=== PATIENT | female | born 1950 | race Caucasian/White ===

== ENCOUNTER 2025-09-16 08:53 | Outpatient (REF) | payer MEDICARE, SELFPAY ==
[2025-09-16 13:15] LABS: Appearance Urine Clear; Glucose Urine UA Negative (Negative); PH 8.5 (5.0-9.0); Specific Gravity - Urine 1.010 (1.005-1.025); UMIC TRIGGER UACC YES
[2025-09-16 13:19] LABS: MANUAL DIFF FLAG NO
[2025-09-16 13:40] LABS: Hematocrit 40.0 % (37.0-47.0); Hemoglobin 13.0 g/dl (12.0-16.0); Imm Gran Abs Auto 0.01 X10*3/uL (0.00-0.03); Imm Gran Pct Auto 0.2 % (0.0-0.4); Lymphocytes Absolute Auto 0.9 X10*3/uL (1.2-4.9); Mean Corpuscular HGB Conc 32.5 g/dl (31.0-35.0); Mean Corpuscular Hemoglobin 31.1 pg (27.0-33.0); Mean Corpuscular Volume 95.7 fL (80.0-98.0); NRBC Abs Auto 0.000 X10*3/uL (0.0-0.012); NRBC Pct Auto 0.0 /100WBC (0.0-0.2); Platelet Count 232 X10*3/uL (160-400); Red Blood Count 4.18 X10*6/uL (4.20-5.50); White Blood Count 4.8 X10*3/uL (4.8-10.8)
[2025-09-16 14:14] LABS: Alanine Aminotransferase 24 U/L (0-31); Albumin Level 4.7 g/dL (3.5-5.0); Alkaline Phosphatase 81 U/L (39-117); Anion Gap 10 (12-20); Aspartate Amino Transferase 29 U/L (5-31); Blood Urea Nitrogen 21 mg/dL (9-16); Calcium 9.5 mg/dL (8.4-10.2); Carbon Dioxide 30 mmol/L (22-29); Chloride 105 mmol/L (96-108); Cholesterol 186 mg/dL (<200); Estimated Glomerular Filt Rate 58; HDL Cholesterol 56 mg/dL (>40); Magnesium 2.3 mg/dL (1.6-2.6); Potassium 4.0 mmol/L (3.3-5.1); Sodium 141 mmol/L (135-145); Total Protein 8.0 g/dL (6.5-8.0); Triglycerides 137 mg/dL (<150)
[2025-09-16 14:23] LABS: HBS Num1 20.02 mIU/mL (0-7.99); HBsAGNum1 0.37 S/CO (0.00-0.99); HIV Num 1 0.05 S/CO (0.00-0.99); Hepatitis B Surface Antigen Negative (Negative); ~HepC Num1 0.13 S/CO (0.00-0.79); ~Hepatitis B Surface Antibody REACTIVE (Nonreactive); ~Hepatitis C Antibody Nonreactive (Nonreactive)
[2025-09-16 14:24] LABS: Folate 12.3 ng/mL (> or = 4.0); Vitamin B12 697 pg/mL (200-900)
[2025-09-20 12:04] LABS: VITAMIN D (1,25 OH) D3 44 pg/mL; Vit D (1,25-Dihydroxy) Total 44 pg/mL (18-72); Vitamin D (1,25 OH) D2 <8 pg/mL
== END 2025-09-16 08:54 | disposition home or self-care (01) ==
LOC: HO.HKASLDS 08:53
PROVIDERS: Visit Provider Student in an Organized Health Care Education/Training Program
DX: Z13.9 Encounter for screening, unspecified (principal); I10 Essential (primary) hypertension; E78.5 Hyperlipidemia, unspecified; R03.0 Elevated blood-pressure reading, without diagnosis of hypertension; E66.3 Overweight; Z79.899 Other long term (current) drug therapy; Z68.26 Body mass index [BMI] 26.0-26.9, adult
CPT/HCPCS: 36415; 80053; 80061; 81001; 82570; 82607; 82652; 82746; 83036; 83735; 84443; 85025; 86706; 86803; 87340; 87389; 96127; 99202

== ENCOUNTER 2025-09-16 08:53 | Outpatient (AMB) | payer MEDICARE, SELFPAY ==
--- OUTSIDE RECORDS SUMMARY | 2025-04-11 07:50 | XMS_ITS | Encounter Summary ---
Author Organization [facility] Address [address] [place] [address] Care Team Providers Care Wash Driller Name Role Phone Pcp, No Primary Care Provider Brett Proctor MD Unavailable [phone] Encounter Details Date Type Department Care Team (Latest Contact Info) Description 04/11/2025 7:50 AM EDT Hospital Encounter [facility] [address] [place] [phone] Hypertensive urgency Social History Tobacco Use Types Packs/Day Years Used Date Smoking Tobacco: Never Smokeless Tobacco: Never Alcohol Use Standard Drinks/Week Comments Not Currently 0 (1 standard drink = 0.6 oz pur e alcohol) [facility] Utilities Answer Date Recorded In the past 12 months has [employer], gas, oil, or water [email or web address] threatened to shut off services in your [...] were you homeless or living in a snf (including now)? No 02/23/2025 Comments No Sex and Gender Information Value Date Recorded Sex Assigned at Female 02/22/2025 11:05 PM EDT Legal Sex Female 9:23 PM EDT Gender Identity Female 02/22/2025 11:05 PM EDT Sexual Orientation Heterosexual (straight) 02/22 11:05 PM EDT documented as of this encounter Plan of Treatment Upcoming Encounters Date Type Department Care Team (Late st Contact Info) Description 09/20/2025 8:00 AM EDT Office Visit [facility] [place] [address] [place] [phone] Brett Ellington MD [address] [place] [address] documented as of this encounter Procedures Procedure [...] urgency documented in this encounter Care Teams Wash Driller Relationship Specialty Start Date End Date Pcp, No PCP - General General Medicine 02/28/25 Brett Ellington MD [facility] [address] [place] [address] Primary Plastic Welder Cardiovascular Disease 03/09/24 documented as of this encounter
--- NOTE | 2025-09-16 08:54 | A.OFFPC_ITS ---
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 up Commercial Sales Specialist Required: No Accompanied by: Self / Same As Patient Allergies No Known Allergies Allergy (Verified 09/16/25 08:58) Medication List - Last Reconciled 09/16/25 by Adrián Espinal MD carvedilol 12.5 mg PO BID chlorthalidone 25 mg PO DAILY losartan 100 mg PO DAILY nifedipine ER 60 mg PO DAILY rosuvastatin 40 mg PO DAILY Tobacco use date assessed: 09/16/25 Dental Screening Dental Screen Date: 09/16/25 Did you have a dental visit in the last 12 months?: Yes Did you have a dental problem in the last 6 months where you did not have access to dental care?: No Was dental information given to patient?: Patient has dentist HPI HPI Comments History of Present Illness Details History of Present Illness The patient is a 75 year old female presenting to [facility] primary care. Essential Hypertension: The patient has a history of hypertension managed by an dimensional engineer in [facility]. Her medications include carvedilol, chlorthalidone, losartan, and nifedipine. Her daughter reports home blood pressure readings of 135-140 mmHg, but her in-office reading was 188/86 mmHg, which was attributed to nervousness. She saw a clinical director three months ago and had an echocardiogram and an electrocardiogram performed. Hyperlipidemia: The patient takes rosuvastatin, indicating treatment for hyperlipidemia. Health Maintenance: Her last blood work was done two months ago, in January. Her last colonoscopy was three years ago, with no specific follow-up interval mentioned. Mammograms and Pap smears are reportedly up-to-date and normal. All her vaccinations are reportedly up to date. Medications: - Carvedilol for hypertension - Chlorthalidone for hypertension - Losartan for hypertension - Nifedipine for hypertension - Rosuvastatin for hyperlipidemia Social History: - Tobacco use: Denies smoking. - Alcohol use: Denies drinking. - Residence: The patient is temporarily living with her daughter in [place] after previously living with her sister in [place]. Diagnostic Results: - In-office blood pressure: 188/86 mmHg. - Patient reports having had blood work done two months ago. - Patient reports having an echocardiogr am and electrocardiogram three months ago. - Patient reports last colonoscopy was t hree years ago. - Patient reports mammograms and Pap sme ars were good. Past Medical History - Hypertension - Hyperlipidemia - Last colonoscopy 3 years ago. - Reports normal mammograms and Pap smea rs in the past. Health Maintenance - The patient reports that her mammogram s, Pap smears, and vaccinations are up to date. - Her last colonoscopy was three years a go. - New laboratory studies were ordered, i ncluding a complete blood count, comprehensive metabolic panel, HbA1c, hepatitis B and C screening, thyroid panel, urinalysis, B12, folate, and vitamin D levels. [facility] Family History (Updated 09/16/25 @ 08:59 by Domenico Mackey MA) Father No problems noted. Mother No problems noted. Social History Housing: House Patient Tobacco Use Status: Never used Tobacco service: No Current occupational status: retired Cognitive needs: No Hearing needs: No Vision needs: Yes (rx glasses) Questionnaire Thrive Questionnaire Date Thrive assessed: 09/13/25 I am a: Patient What is your living situation today?: I choose not to answer this question Within the past 12 months, did the food you bought not last and you didn't have the money to get more?: I choose not to answer this question Within the past 12 months, did you worry whether your food would run out before you got money to buy more?: I choose not to answer this question Do you have trouble paying for medicines?: I choose not to answer this question Do you have trouble getting transportation to medical appointments?: No Do you have trouble paying your heating and electricity bill?: No Do you have trouble taking care of your child, family member or friend?: No Do you have trouble with day-to-day activities such as bathing, preparing meals, shopping, managing finances, etc.?: No Are you currently unemployed and looking for a job?: No Are you interested in more education?: No Please select the resources that you would like help with: None Currently or been in a relationship where the following occur: I choose not to answer THRIVE Score: 0 AUDIT C Alcohol Use Questionnaire (AUDIT-C) 1. How often do you have a drink containing alcohol?: Never 2. How many drinks containing alcohol do you have on a typical day when you are drinking?: 1 or 2 3. How often do you have six or more drinks on one occasion?: Never Total Score: 0 GUNJAN-7 AMB Questionnaire GUNJAN-7 Feeling nervous, anxious, or on edge: 2 = More than half the days Not being able to stop or control worryin = Not at all Worrying too much about different things: 0 = Not at all Trouble relaxin = Not at all Being so restless that it is hard to sit still: 0 = Not at all Becoming easily annoyed or irritable: 0 = Not at all Feeling afraid as if something awful might happen: 0 = Not at all Total GUNJAN-7 score (0-4 normal; 5-9 mild; 10-14 moderate; 15-21 severe): 2 Source: Developed by Drs. Shai Carcamo, Sarah Zhu, Frank Connolly and colleagues, with an educational gilma from [employer]. Review of Systems Narrative Review of Systems - Cardiovascular: Reports a small amount of pedal edema. - Gastrointestinal: Reports normal bowel function. - Genitourinary: Reports normal urination but has nocturia once per night. - Neurological/Sleep: Reports variable sleep quality and snores a little. - Psychiatric: Daughter reports the patient is nervous during the visit. 10-point ROS reviewed and negative except as noted in HPI Physical exam (Primary Care) Vital Signs: Last Vital Signs Temp 98.2 F 09/16/25 09:02 Pulse 88 09/16/25 09:02 Resp 16 09/16/25 09:02 BP 188/86 H 09/16/25 09:02 Pulse Ox 97 09/16/25 09:02 Oxygen Delivery Method Room Air 09/16/25 09:02 BMI result Body Mass Index 26.5 Tobacco/Smoking Status: Tobacco use Status Tobacco use date assessed 09/16/25 09/16/25 09:02 Patient Tobacco Use Status Never used Tobacco 09/16/25 09:02 Thrive Assessment: Date of Thrive Assessment Date Thrive assessed 09/13/25 09/16/25 08:56 Currently or been in a relationship where the following occur: I choose not to answer Narrative Physical Exam General: Well-appearing, in no acute distress. Vital signs: Blood pressure 188/86, otherwise within normal limits. HEENT: Normocephalic, atraumatic. PERRLA, EOMI. Conjunctiva clear, sclera anicteric. Oropharynx clear, mucous membranes moist. TMs intact bilaterally. Neck: Supple, no lymphadenopathy, no thyromegaly, no JVD or carotid bruits. Cardiovascular: RRR, normal S1/S2, no murmurs, rubs, or gallops. Peripheral pulses 2+ and symmetric. Slight edema noted in feet. Respiratory: Lungs clear to auscultation bilaterally, no wheezes, rales, or rhonchi. Normal effort. Mild snoring reported. Abdomen: Soft, non-tender, non-distended. Normoactive bowel sounds. No hepatosplenomegaly, no masses. MSK: Full range of motion, no joint swelling or deformity. Normal gait. Skin: Warm, dry, intact. No rashes, lesions, or pallor. Neuro: Alert and oriented x3. Cranial nerves II-XII intact. Strength 5/5 throughout. Sensation intact. Reflexes 2+ symmetric. Normal coordination and gait. Psych: Appropriate mood and affect. Normal judgment and insight. Sleep is sometimes good, sometimes not good. Occasional waking at night to urinate. Coding Level of Care Code New Pt Level 4 (15924) Diagnoses Hypertension I10 Hyperlipidemia E78.5 Elevated blood pressure reading R03.0 Overweight (BMI 25.0-29.9) E66.3 Assessment & Plan Assessment & Plan (1) Hypertension: Code(s): I10 - Essential (primary) hypertension (2) Hyperlipidemia: Code(s): E78.5 - Hyperlipidemia, unspecified (3) Elevated blood pressure reading: Code(s): R03.0 - Elevated blood-pressure reading, without diagnosis of hypertension (4) Overweight (BMI 25.0-29.9): Code(s): E66.3 - Overweight Plan Consent Consent was verbally obtained from the patient and her daughter for a new patient evaluation and for ordering comprehensive blood work. Patient was informed and verbally consented to the use of an ambient scribe for clinic note documentation during this visit. Plan 1. Essential Hypertension - Will obtain and review medical records from her previous providers to assess the management of her hypertension. - Office blood pressure is elevated at 188/86 mmHg, which may be related to anxiety. - Ordered a comprehensive metabolic panel to check renal function and electrolytes, which can be affected by blood pressure and its medications. - No changes will be made to her current antihypertensive medications (carvedilol, chlorthalidone, losartan, nifedipine) pending review of records and lab results. 2. Hyperlipidemia - The patient is currently on rosuvastatin. - Will obtain past records and check lipid levels via new lab work to evaluate the effectiveness of current therapy. 3. Establishment Of Primary Care - Will establish care as the patient's new primary care physician. - Ordered baseline new patient labs, including a CBC, CMP, HbA1c, hepatitis panel, TSH, urinalysis, vitamin B12, folate, and vitamin D. - The patient will have blood work done at the clinic today. - A follow-up visit will be arranged to discuss the lab results and review medical records. - The patient's daughter's request for an authorization to see a provider in [place] will be evaluated after a full assessment is complete. Discussion Notes I introduced myself to the patient and her daughter and discussed their primary goal of establishing care and obtaining an authorization for her to see a doctor in [place] due to insurance complexities. I explained that before making any referrals, I need to conduct a thorough evaluation, which includes reviewing her past medical records and obtaining baseline labs. I noted that her blood pressure of 188/86 mmHg in the office is significantly elevated, and while it may be related to anxiety, it suggests her hypertension may not be well-managed. I informed them that I have ordered comprehensive blood work, which she can have done in the office today, to check her overall health, including kidney and liver function, blood counts, thyroid, and vitamin levels. We agreed to schedule a follow-up appointment to review these results and the records from her previous providers, at which point we can formulate a definitive care plan. Patient Instructions - Please have your blood work done here in the office today. - Please contact your previous doctors and ask them to send your medical records to our office. - Schedule a follow-up appointment to review your lab results and medical records. - Continue to take your current medications as they have been prescribed. Medical Decision Making The patient is a 75-year-old female with a history of hypertension and hyperlipidemia who presents to establish primary care. The central issue is the patient's request for an authorization to see an [id number] provider while her blood pressure appears to be poorly controlled, with an in-office reading of 188/86 mmHg despite being on four antihypertensive agents (carvedilol, chlorthalidone, losartan, nifedipine). Although her daughter states home readings are lower, this degree of elevation warrants a full evaluation before considering referral. My primary goal for this visit is to begin a comprehensive workup to establish a baseline of her health status and take over her primary care. To this end, I have ordered extensive new patient labs (CBC, CMP, A1c, TSH, vitamins, etc.) and requested all prior medical records, particularly from the providers managing her chronic conditions. This data is essential to understand the rationale for her current medication regimen, rule out secondary causes of hypertension or end-organ damage, and ensure continuity of care. I have deferred any medication adjustments or decisions on the authorization request until these results and records can be reviewed. Total time spent caring for the patient today was 30 minutes. This includes time spent before the visit reviewing the chart, time spent documenting, and time spent reviewing laboratory results, diagnostic imaging, medications, performing a medically necessary evaluation, counseling on diagnoses, care coordination, Orders: Orders Hepatitis B Surface Antibody Today Z13.9 - Encounter for screening, unspecified Hepatitis C Antibody Today Z13.9 - Encounter for screening, unspecified TSH reflex Free T4 Today Z13.9 - Encounter for screening, unspecified Vitamin D 1,25 dihydroxy Today Z13.9 - Encounter for screening, unspecified Vitamin B12 and Folate Today Z13.9 - Encounter for screening, unspecified Lipid Panel Today Z13.9 - Encounter for screening, unspecified Complete Blood Count Auto Diff Today Z13.9 - Encounter for screening, unspecified Comprehensive Met. Panel Today Z13.9 - Encounter for screening, unspecified Hemoglobin A1c Today Z13.9 - Encounter for screening, unspecified Hepatitis B Surface Antigen Today Z13.9 - Encounter for screening, unspecified UA CC w/rflx Micro + Cult Today Z13.9 - Encounter for screening, unspecified Magnesium Today Z13.9 - Encounter for screening, unspecified Microalbumin, Random (w Creat) Today Z13.9 - Encounter for screening, unspecified HIV Ab/Ag Today Z13.9 - Encounter for screening, unspecified
[2025-09-16 09:02] VITALS: BP 188/86; PULSE 88; RESP 16; TEMP 36.8; O2SAT 97; BMI 26.5
--- OUTSIDE RECORDS SUMMARY | 2025-09-16 09:33 | XMS_ITS ---
Author Name [facility] Organization Unknown Results Test Name/Text Value Interpretation Date Range Source Renin Plas-cCnc 1.35 ng/mL/h 04/10/2025 [facility] Magnesium SerPl-mCnc 2.4 mg/dL Normal 03/06/2025 1.6 - 2. 6 [facility] Albumin SerPl-mCnc 4.8 g/dL Normal 03/06/2025 3.4 - 4.8 [facility]CT Globulin Ser Calc-mCnc 3.2 g/dL Normal 03/06/2025 1.5 - 3.9 H[facility]CT Bilirub SerPl-mCnc 0.8 mg/dL Normal 03/06/2025 0.3 - 1.2 HHCCT ALT SerPl-cCnc 15.0 U/L Normal 03/06/2025 7 - 35 [facility] T Glucose SerPl-mCnc 112.0 mg/dL Above high normal 03/06/2025 74 - 106 HHCCT GFR/BSA.pred SerPlBld [id number] 66.0 Normal 03/06/2025 59 - HHCCT Albumin/Glob SerPl 1.5 Ratio Normal 03/06/2025 1.5 - 2.5 H[facility]CT Sodium SerPl-sCnc 144.0 mmol/L Normal 03/06/2025 136 - 14 5 HHCCT Creat SerPl-mCnc 0.9 mg/dL Normal 03/06/2025 0.6 - 1 HH CCT Anion Gap Bld-sCnc 6.0 Normal 03/06/2025 5 - 15 H[facility]CT Chloride SerPl-sCnc 109.0 mmol/L Above high normal 98 - 107 H[facility]CT BUN SerPl-mCnc 12.0 mg/dL Normal 03/06/2025 9 - [address] Prot SerPl-mCnc 8.0 g/dL Normal 03/06/2025 5.7 - 8.[address] BUN/Creat SerPl 13.0 Ratio Normal 03/06/2025 10 - 25 HH CCT ALP SerPl-cCnc 90.0 U/L Normal 03/06/2025 32 - 122 [facility] T Calcium SerPl-mCnc 9.5 mg/dL Normal 03/06/2025 8.7 - 10.5 HHCCT AST SerPl-cCnc 36.0 U/L Above high normal 03/06/2025 - 34 HHCCT CO2 SerPl-sCnc 30.0 mmol/L Normal 03/06/2025 20 - 31 HH CCT Potassium SerPl-sCnc 5.2 mmol/L Above high normal 03/06/2025 3.4 - 4.5 H[facility]CT BNP SerPl-mCnc 112.0 pg/mL Above high normal 03/06/2025 0 - 99 H[facility]CT Basophils num Bld Auto 0.01 Thou/uL Normal 03/06/2025 0 - 0.2 HHCCT Imm Granulocytes/leuk NFr Bld Auto 0.1 % Normal 03/06/2025 H[facility]CT RDW RBC Auto-Rto 13.0 % Normal 03/06/2025 11.5 - 14.5 HHCCT MCV RBC Auto 93.0 fL Normal 03/06/2025 80 - 100 H[facility]CT Neutrophils/leuk NFr Bld Auto 77.7 % Normal 03/06/2025 H[facility]CT Monocytes num Bld Auto 0.51 Thou/uL Normal 03/06/2025 0.2 - 1.5 HHCCT WBC num Bld Auto 7.5 Thou/uL Normal 03/06/2025 4 - 11 H[facility]CT Eosinophil/leuk NFr Bld Auto 1.1 % Normal 03/06/2025 H[facility]CT Lymphocytes num Bld Auto 1.07 Thou/uL Below low normal 03/06/2025 1.5 - 4.5 H[facility]CT Hgb Bld-mCnc 12.1 g/dL Normal 03/06/2025 11.7 - 15.7 [facility] T MCH RBC Qn Auto 30.4 pg Normal 03/06/2025 27 - [address] RBC num Bld Auto 3.98 Mil/uL Below low normal 03/06/2025 4 - 5.4 HHCCT Hct VFr Bld Auto 37.1 % Normal 03/06/2025 35 - 47 HH CCT Eosinophil num Bld Auto 0.08 Thou/uL Normal 03/06/2025 0 - 0.7 HHCCT Monocytes/leuk NFr Bld Auto 6.8 % Normal 03/06/2025 H[facility]CT Imm Granulocytes num Bld Auto 0.01 Thou/uL Normal 03/06/2025 0 - 0.1 HHCCT Neutrophils num Bld Auto 5.85 Thou/uL Normal 03/06/2025 2 - 7.5 HHCCT PMV Bld Auto 10.4 fL Normal 03/06/2025 7.5 - 12.5 H[facility]CT Lymphocytes/leuk NFr Bld Auto 14.2 % Normal 03/06/2025 H[facility]CT Basophils/leuk NFr Bld Auto 0.1 % Normal 03/06/2025 HHCCT MCHC RBC Auto-mCnc 32.6 g/dL Normal 03/06/2025 30 - 36 H[facility]CT Platelet num Bld Auto 265.0 Thou/uL Normal 03/06/2025 150 - 450 H[facility]CT BUN SerPl-mCnc 16.0 mg/dL Normal 02/24/2025 9 - [address] Glucose SerPl-mCnc 102.0 mg/dL Normal 02/24/2025 74 - 106 H[facility]CT Anion Gap Bld-sCnc 6.0 Normal 02/24/2025 5 - 15 H[facility]CT BUN/Creat SerPl 18.0 Ratio Normal 02/24/2025 10 - 25 HH CCT Chloride SerPl-sCnc 108.0 mmol/L Above high normal 98 - 107 HHCCT CO2 SerPl-sCnc 30.0 mmol/L Normal 02/24/2025 20 - 31 HH CCT Creat SerPl-mCnc 0.9 mg/dL Normal 02/24/2025 0.6 - 1 HH CCT Potassium SerPl-sCnc 4.1 mmol/L Normal 02/24/2025 3.4 - 4 .5 HHCCT GFR/BSA.pred SerPlBld [id number] 66.0 Normal 02/24/2025 59 - HHCCT Calcium SerPl-mCnc 8.6 mg/dL Below low normal 02/24/2025 8.7 - 10.5 HHCCT Sodium SerPl-sCnc 144.0 mmol/L Normal 02/24/2025 136 - 14 5 HHCCT Troponin I SerPl DL<=0.01 ng/mL-mCnc 91.0 ng/L Above high normal 02/24/2025 - [facility] CT Delta 54.0 Normal 02/24/2025 HHCCT MCH RBC Qn Auto 29.8 pg Normal 02/24/2025 27 - [address] Hct VFr Bld Auto 34.3 % Below low normal 02/24/2025 35 - 47 HHCCT RBC num Bld Auto 3.72 Mil/uL Below low normal 02/24/2025 4 - 5.4 HHCCT MCV RBC Auto 92.0 fL Normal 02/24/2025 80 - 100 HHCCT PMV Bld Auto 10.5 fL Normal 02/24/2025 7.5 - 12.5 HHCCT WBC num Bld Auto 5.3 Thou/uL Normal 02/24/2025 4 - 11 HHCCT Hgb Bld-mCnc 11.1 g/dL Below low normal 02/24/2025 11.7 - 15 .7 HHCCT MCHC RBC Auto-mCnc 32.4 g/dL Normal 02/24/2025 30 - 36 HHCCT RDW RBC Auto-Rto 13.2 % Normal 02/24/2025 11.5 - 14.5 HHCCT Platelet num Bld Auto 200.0 Thou/uL Normal 02/24/2025 150 - 450 HHCCT Troponin I SerPl DL<=0.01 ng/mL-mCnc 103.0 ng/L Above high normal 02/24/2025 - [facility] CT Delta 66.0 Normal 02/24/2025 HHCCT Delta 86.0 Normal 02/23/2025 HHCCT Troponin I SerPl DL<=0.01 ng/mL-mCnc 123.0 ng/L Above high normal 02/23/2025 - [facility] CT Delta 67.0 Normal 02/23/2025 HHCCT Troponin I SerPl DL<=0.01 ng/mL-mCnc 104.0 ng/L Above high normal 02/23/2025 - [address] Delta 15.0 Normal 02/23/2025 HHCCT Troponin I SerPl DL<=0.01 ng/mL-mCnc 52.0 ng/L Above high normal 02/23/2025 - [address] Delta 11.0 Normal 02/23/2025 HHCCT Troponin I SerPl DL<=0.01 ng/mL-mCnc 48.0 ng/L Above high normal 02/23/2025 - [address] Glucose SerPl-mCnc 118.0 mg/dL Above high normal 02/23/2025 74 - 106 HHCCT Prot SerPl-mCnc 7.6 g/dL Normal 02/23/2025 5.7 - 8.[address] Calcium SerPl-mCnc 9.5 mg/dL Normal 02/23/2025 8.7 - 10.5 HHCCT ALT SerPl-cCnc 15.0 U/L Normal 02/23/2025 7 - 35 [facility] T Anion Gap Bld-sCnc 9.0 Normal 02/23/2025 5 - 15 HHCCT Globulin Ser Calc-mCnc 3.0 g/dL Normal 02/23/2025 1.5 - 3.9 HHCCT Sodium SerPl-sCnc 145.0 mmol/L Normal 02/23/2025 136 - 14 5 HHCCT GFR/BSA.pred SerPlBld [id number] 76.0 Normal 02/23/2025 59 - HHCCT CO2 SerPl-sCnc 27.0 mmol/L Normal 02/23/2025 20 - 31 HH CCT Albumin SerPl-mCnc 4.6 g/dL Normal 02/23/2025 3.4 - 4.8 HHCCT Albumin/Glob SerPl 1.5 Ratio Normal 02/23/2025 1.5 - 2.5 HHCCT ALP SerPl-cCnc 91.0 U/L Normal 02/23/2025 32 - 122 [facility] T Chloride SerPl-sCnc 109.0 mmol/L Above high normal 98 - 107 HHCCT Bilirub SerPl-mCnc 0.5 mg/dL Normal 02/23/2025 0.3 - 1.2 HHCCT BUN/Creat SerPl 21.0 Ratio Normal 02/23/2025 10 - 25 HH CCT AST SerPl-cCnc 28.0 U/L Normal 02/23/2025 - 34 [facility] T BUN SerPl-mCnc 17.0 mg/dL Normal 02/23/2025 9 - [address] Creat SerPl-mCnc 0.8 mg/dL Normal 02/23/2025 0.6 - 1 HH CCT Potassium SerPl-sCnc 3.8 mmol/L Normal 02/23/2025 3.4 - 4 .5 HHCCT Delta NO PREVIOUS RESULT Normal 02/23/2025 HHCCT Troponin I SerPl DL<=0.01 ng/mL-mCnc 37.0 ng/L Above high normal 02/23/2025 - [address] Neutrophils/leuk NFr Bld Auto 85.5 % Normal 02/23/2025 HHCCT PMV Bld Auto 10.3 fL Normal 02/23/2025 7.5 - 12.5 HHCCT MCV RBC Auto 91.0 fL Normal 02/23/2025 80 - 100 HHCCT Monocytes num Bld Auto 0.48 Thou/uL Normal 02/23/2025 0.2 - 1.5 HHCCT Eosinophil/leuk NFr Bld Auto 0.2 % Normal 02/23/2025 HHCCT MCH RBC Qn Auto 30.4 pg Normal 02/23/2025 27 - [address] Lymphocytes num Bld Auto 0.99 Thou/uL Below low normal 02/23/2025 1.5 - 4.5 HHCCT Hgb Bld-mCnc 12.7 g/dL Normal 02/23/2025 11.7 - 15.7 [facility] T Basophils/leuk NFr Bld Auto 0.1 % Normal 02/23/2025 HHCCT Platelet num Bld Auto 245.0 Thou/uL Normal 02/23/2025 150 - 450 HHCCT Imm Granulocytes num Bld Auto 0.05 Thou/uL Normal 02/23/2025 0 - 0.1 HHCCT Monocytes/leuk NFr Bld Auto 4.5 % Normal 02/23/2025 HHCCT RDW RBC Auto-Rto 12.6 % Normal 02/23/2025 11.5 - 14.5 HHCCT Basophils num Bld Auto 0.01 Thou/uL Normal 02/23/2025 0 - 0.2 HHCCT Eosinophil num Bld Auto 0.02 Thou/uL Normal 02/23/2025 0 - 0.7 HHCCT Hct VFr Bld Auto 37.9 % Normal 02/23/2025 35 - 47 HH CCT WBC num Bld Auto 10.8 Thou/uL Normal 02/23/2025 4 - 11 HHCCT Lymphocytes/leuk NFr Bld Auto 9.2 % Normal 02/23/2025 HHCCT Imm Granulocytes/leuk NFr Bld Auto 0.5 % Normal 02/23/2025 HHCCT MCHC RBC Auto-mCnc 33.5 g/dL Normal 02/23/2025 30 - 36 HHCCT RBC num Bld Auto 4.18 Mil/uL Normal 02/23/2025 4 - 5.4 HHCCT Neutrophils num Bld Auto 9.23 Thou/uL Above high normal 02/23/2025 2 - 7.5 HHCCT History of Medication Use Medication Directions Dispensed Refills Start Date End Date Stat NIFEdipine (PROCARDIA XL) 60 MG 24 hr tablet Take 1 tablet (60 mg total) by mouth daily. 06/20/2025 active carvedilol (COREG) 12.5 MG tablet Take 1 tablet (12.5 mg total) by mouth 2 (two) times a day with meals. 03/20/2025 active chlorthalidone (HYGROTON) 25 MG tablet Take 1 tablet (25 mg total) by mouth daily. 03/20/2025 active losartan (COZAAR) 100 MG tablet Take 1 tablet (100 mg total) by mouth daily. 03/07/2025 03/20/2025 active aspirin enteric coated (ECOTRIN LOW STRENGTH) 81 MG EC tablet Take 1 tablet (81 mg total) by mouth daily. 02/25/2025 active losartan (COZAAR) 50 MG tablet Take 1 tablet (50 mg total) by mouth daily. Do not start before February 25, 2025. 02/25/2025 active carvedilol (COREG) 6.25 MG tablet Take 1 tablet (6.25 mg total) by mouth 2 (two) times a day with meals. 02/24/2025 active rosuvastatin (CRESTOR) 40 MG tablet Take 1 tablet (40 mg total) by mouth daily. 02/24/2025 active Problems Problem Status Onset Date Problem Type Date of Resoluti on Source Hypertensive urgency active 2025-02-23 ProblemAct H[facility] Encounters Encounter Type Encounter Reason Primary Diagnosis Location Date Ambulatory Hypertensive urgency Hypertensive urgency [facility] 06/20/2025 Ambulatory Hypertensive urgency Hypertensive urgency [facility] 05/02/2025 Ambulatory Hypertensive urgency Hypertensive urgency [facility] 04/11/2025 Ambulatory Hypertensive urgency Hypertensive urgency [facility] 03/20/2025 Emergency Essential (primary) hypertension Essential (primary) hypertension [facility] 03/06/2025 Ambulatory Hypertensive urgency Hypertensive urgency [facility] 03/06/2025 Ambulatory Encounter for removal of sutures Encounter for removal of sutures [facility] 03/02/2025 Inpatient Unspecified fall, initial encounter Unspecified fall, initial encounter [facility] 02/22/2025 Care Team Organization Name Specialty Phone Email Start Date End Da te [facility] 09/12/2025 [facility] PCP Logistics Associate 06/21/2025 07/19/2025 [facility] 06/20/2025 025 [facility] NO PCP Primary Care 02/28/2025 [facility] 02/25/2025 07/19/2025 [facility] 02/23/2025
--- OUTSIDE RECORDS SUMMARY | 2025-09-16 09:33 | XMS_ITS | Clinical Summary ---
Author Organization [facility] Address [address] [place] [address] Care Team Providers Care Cash Register Servicer Name Role Phone Pcp, No Primary Care Provider Brett Proctor MD Unavailable [phone] Allergies No known active allergies Medications aspirin enteric coated (ECOTRIN LOW STRENGTH) 81 MG EC tabletIndication s:Hypertensive urgency,Elevated troponin Take 1 tablet (81 mg total) by mouth daily. 30 tablet 2 02/25/2025 Active rosuvastatin (CRESTOR) 40 MG tabletIndication s:Hypertensive urgency Take 1 tablet (40 mg total) by mouth daily. 90 tablet 02/24/2025 Active losartan (COZAAR) 100 MG tabletIndication s:Hypertensive urgency Take 1 tablet (100 mg total) by mouth daily. 90 tablet 3 03/20/2025 Active NIFEdipine (PROCARDIA XL) 60 MG 24 hr tabletIndication s:Hypertensive urgency Take 1 tablet (60 mg total) by mouth daily. 90 tablet 3 06/20/2025 Active chlorthalidone (HYGROTON) 25 MG tabletIndication s:Hypertensive urgency Take 1 tablet (25 mg total) by mouth daily. 90 tablet 3 06/20/2025 Active carvedilol (COREG) 12.5 MG tabletIndication s:Hypertensive urgency Take 1 tablet (12.5 mg total) by mouth 2 (two) times a day with meals. 60 tablet 5 07/15/2025 Active Active Problems Problem Noted Date Diagnosed Date Hypertensive urgency 02/23/2025 Encounters Date Type Department Care Team Description 08/12/2025 Telephone [facility] [address] [place] [address] Leidy Briscoe APRN 07/15/2025 Refill [facility] [address] [place] [address] Brett Ellington MD Medication Refill 06/20/2025 8:20 AM EDT Office Visit [facility] [address] [place] [address] Brett Ellington MD Resistant hypertension (Primary Dx); Hypertensive urgency ; Dyslipidemia Discharge Disposition: Home or Self Care 06/20/2025 Travel from Last 3 Months Social History Tobacco Use Types Packs/Day Years Used Date Smoking Tobacco: Never Smokeless Tobacco: Never Tobacco Cessation:Counseling Given: No Alcohol Use Standard Drinks/Week Comments Not Currently 0 (1 standard drink = 0.6 oz pur e alcohol) [facility] Utilities Answer Date Recorded In the past 12 months has [employer], oil, or water [employer] threatened to shut off services in your [...] any time in the past 12 m [facility], were you homeless or living in a halfway (including now)? No 02/23/2025 Comments No Sex and Gender Information Value Date Recorded Sex Assigned at Female 02/22/2025 11:05 PM EDT Legal Sex Female 9:23 PM EDT Gender Identity Female 02/22/2025 11:05 PM EDT Sexual Orientation Heterosexual (straight) 02/22 11:05 PM EDT Last Filed Vital Signs Vital Sign Reading Time Taken Comments Blood Pressure 212/110 06/20/2025 8:23 AM EDT Pulse 76 06/20/2025 8:23 AM EDT Temperature 36.4 C (97.6 F) 03/06/2025 3:49 PM EDT Respiratory Rate 18 03/06/2025 6:35 PM EDT Oxygen Saturation 98% 06/20/2025 8:23 AM EDT Inhaled Oxygen Concentration - - Weight 61.2 kg (135 lb) 06/20/2025 8:23 AM EDT Height 152.4 cm (5') 06/20/2025 8:23 AM EDT Body Mass Index 26.37 06/20/2025 8:23 AM EDT Plan of Treatment Upcoming Encounters Date Type Department Care Team (Late st Contact Info) Description 09/20/2025 8:00 AM EDT Office Visit [facility] [place] [address] [place] [address] Brett Ellington MD [address] [place], [place] [id number] Health Maintenance Due Date Last Done Comments Advance Care Planning 1950 Hepatitis C Virus Screening 1950 DTaP/Tdap/Td Vaccines (1 - Tdap) 02/13/1967 Pneumococcal Vaccines 50+ (1 of 1 - PCV) 02/13/1998 Zoster (Shingles) Vaccine (1 of 2) 02/13/1998 DXA Bone Density (Females,Ag es 65 and older) 02/13/2013 RSV Vaccine 50 years and old er and Patients (1 - 1-dose 75+ series) 02/13/2023 Influenza Vaccine 06/21/2025 COVID-19 Vaccine ( - 2023-2 5 season) 2025 Hepatitis B Vaccines Aged Out No long er eligible based on patient's age to complete this topic Procedures Procedure Name Priority Date/Time Associated Diagnosis Comments ECG 12-LEAD Routine 06/20/2025 8:27 AM EDT Hypertensive urgency from Last 3 Months Results * ECG 12 lead (06/20/2025 8:27 AM EDT) Pathologist [facility] Ventricular rate 76 BPM EKG [facility] Atrial rate 76 BPM EKG [facility] P-R interval 162 ms EKG [facility] QRS duration 74 ms EKG [facility] Q-T interval 360 ms EKG [facility] QTC calculation (Bazett) 405 ms EKG [facility] P axis 50 degrees EKG [facility] R axis 13 degrees EKG [facility] T axis 27 degrees EKG [facility] 06/20/2025 8:27 AM EDT Narrative EKG [facility] - 06/21/2025 4:52 PM EDT Normal sinus rhythm Normal ECG When compared with ECG of 20-Mar-2025 16:14, No significant change was found Confirmed by MD Ellington Matthew ([id number]) on 06/21/2025 4:52:17 PM Procedure Note Brett Ellington MD - 06/21/2025 Normal sinus rhythm Normal ECG When compared with ECG of 20-Mar-2025 16:14, No significant change was found Confirmed by MD Ellington Matthew ([id number]) on 06/21/2025 4:52:17 PM us Brett Ellington MD ECG ORDERABLES Final Result EKG [facility] from Last 3 Months Insurance [facility] MEDICARE [facility] MEDICARE Advance Directives * Full Code (Latest Code Status on File) Date Activated Date Inactivated Comments 02/23/2025 2:48 AM 03/06/2025 3:43 PM Care Teams Cash Register Servicer Relationship Specialty Start Date End Date Pcp, No PCP - General General Medicine 02/28/25 Brett Ellington MD [facility] [address] [place], [place] [phone] Primary Freight Dispatcher Cardiovascular Disease 03/09/24
--- OUTSIDE RECORDS SUMMARY | 2025-09-16 09:33 | XMS_ITS | Encounter Summary ---
Author Organization [facility] Address [address] [place] [address] Care Team Providers Care River Pilot Name Role Phone Pcp, No Primary Care Provider Brett Proctor MD Unavailable [phone] Encounter Details Date Type Department Care Team (Late st Contact Info) Description 05/08/2025 Scanned Document formerly [facility] [place] [address] [place] [address] Provider, Generic Social History Tobacco Use Types Packs/Day Years Used Date Smoking Tobacco: Never Smokeless Tobacco: Never Alcohol Use Standard Drinks/Week Comments Not Currently 0 (1 standard drink = 0.6 oz pur e alcohol) [facility] Utilities Answer Date Recorded In the past 12 months has [employer] electric, gas, oil, or water company threatened to shut off services in your [...] Description 09/20/2025 8:00 AM EDT Office Visit formerly [facility] [address] [place] [phone] Brett Ellington MD [address] [facility] [place] [place] [phone] documented as of this encounter Visit Diagnoses Not on filedocumented in this encounter Care Teams [employer] Relationship Specialty Start Date End Date Pcp, No PCP - General General Medicine 02/28/25 Brett Ellington MD [address] [facility] [place] [place] [phone] Primary Director Of Student Financial Services Cardiovascular Disease 03/09/24 documented as of this encounter
== END 2025-09-16 09:26 | disposition home or self-care (01) ==
LOC: HO.HMCFMS 08:55
PROVIDERS: PCP Student in an Organized Health Care Education/Training Program; Visit Provider Student in an Organized Health Care Education/Training Program
DX: I10 Essential (primary) hypertension (principal); E78.5 Hyperlipidemia, unspecified; R03.0 Elevated blood-pressure reading, without diagnosis of hypertension; E66.3 Overweight

== ENCOUNTER 2025-10-02 08:52 | Outpatient (AMB) | payer MEDICARE, SELFPAY ==
--- OUTSIDE RECORDS SUMMARY | 2025-04-11 06:50 | XMS_ITS | Encounter Summary ---
Author Organization [facility] Address [address] [place] [address] Care Team Providers Care Video Games Mechanic Name Role Phone Pcp, No Primary Care Provider Brett Proctor MD Unavailable [phone] Encounter Details Date Type Department Care Team (Latest Contact Info) Description 04/11/2025 7:50 AM EDT Hospital Encounter [facility] [address] [place] [id number] Hypertensive urgency Social History Tobacco Use Types Packs/Day Years Used Date Smoking Tobacco: Never Smokeless Tobacco: Never Alcohol Use Standard Drinks/Week Comments Not Currently 0 (1 standard drink = 0.6 oz pur e alcohol) [facility] Utilities Answer Date Recorded In the past 12 months has [employer], gas, oil, or water [employer] threatened to shut off services in your home? No 02/23/2025 AUDIT-C Answer Date Recorded Q1: How often do you have a drink containing alcohol? Never 02/23/2025 Q2: How many drinks containi ng alcohol do you have on a typical day when you are drinking? Patient does not drink Q3: How often do you have si x or more drinks on one occasion? Never 02/23/2025 Overall Financial Resource Strain (CARDIA) Answe r Date Recorded How hard is it for you to pa y for the very basics like food, housing, medical care, and heating? Not hard at all 02/23/2025 Hunger Vital Sign Answer Date Recorded Within the past 12 months, y ou worried that your food would run out before you got the money to buy more. Never true 02/24/20 25 Within the past 12 months, t he food you bought just didn't last and you didn't have money to get more. Never true 02/23/2025 PRAPARE - Transportation Answer Date Re corded In the past 12 months, has l ack of transportation kept you from medical appointments or from getting medications? No 03/2025 In the past 12 months, has l ack of transportation kept you from meetings, work, or from getting things needed for daily living? No 02/23/2025 Housing Stability Vital Sign Answer Zurdo e Recorded In the last 12 months, was t here a time when you were not able to pay the mortgage or rent on time? No 02/23/2025 In the past 12 months, how m any times have you moved where you were living? 0 02/23/2025 At any time in the past 12 m ont, were you homeless or living in a fpc (including now)? No 02/23/2025 Comments No Sex and Gender Information Value Date Recorded Sex Assigned at Female 02/22/2025 11:05 PM EDT Legal Sex Female 9:23 PM EDT Gender Identity Female 02/22/2025 11:05 PM EDT Sexual Orientation Heterosexual (straight) 02/22 11:05 PM EDT documented as of this encounter Plan of Treatment Not on file documented as of this encounter Procedures Procedure Name Priority Date/Time Associated Diagnosis Comments US RENAL COMPLETE & US RENAL ARTERY DUPLEX BILATERAL Routine 04/11/2025 9:13 AM EDT Hypertensive urgency documented in this encounter Results * US Renal Complete & US Renal Artery Duplex Bilateral (04/11/2025 9:13 AM EDT) Anatomical Region Laterality Modality Abdomen Ultrasound 04/11/2025 10:1 5 AM EDT Narrative 04/11/2025 10:25 AM EDT HISTORY: 75 year-old female with hypertension. Evaluate for renovascular cause of hypertension. PROCEDURE: Real-time sonography of the kidneys, aorta, and interlobar and main renal arteries and main renal veins was performed using grayscale, color flow and Doppler interrogation according to a renal artery Doppler protocol. COMPARISON: None. Right kidney measures 11.8 cm in length. Left kidney measures 10.2 cm. There is normal cortical thickness and echogenicity. No evidence of focal mass noted. There is no evidence of hydronephrosis. Anechoic cyst in the right midpole measuring 3 x 2.7 x 2.3 cm. Echogenic foci in the upper and lower pole the left kidney measuring 4-5 mm which may represent nonobstructing calculi. Doppler evaluation demonstrates normal bilateral acceleration times and resistive indices. Renal artery velocities are within normal limits bilaterally. The urinary bladder was well distended at the time of the study and bilateral ureteral jets were visualized. Pre-void volume measured 137 cc. Minimal postvoid residual measured 8 cc. The abdominal aorta was normal in caliber with no evidence of aneurysm. Scattered atherosclerosis throughout the aorta. The visualized common iliac arteries were normal in caliber. CONCLUSION: Renal ultrasound demonstrates normal kidneys bilaterally . Right renal cyst. Echogenic foci in the left kidney measuring up to 5 mm which may represent renal calculi. No hydronephrosis. Doppler evaluation demonstrates no evidence of significant renal artery stenosis. Procedure Note Denver Pinzon MD - 04/11/2025 HISTORY: 75 year-old female with hypertension. Evaluate for renovascularcause of hypertension. PROCEDURE: Real-time sonography of the kidneys, aorta, and interlobar and main renalarteries and main renal veins was performed using grayscale, color flowand Doppler interrogation according to a renal artery Doppler protocol. COMPARISON: None. Right kidney measures 11.8 cm in length. Left kidney measures 10.2 cm.There is normal cortical thickness and echogenicity. No evidence of focalmass noted. There is no evidence of hydronephrosis. Anechoic cyst in theright midpole measuring 3 x 2.7 x 2.3 cm. Echogenic foci in the upper and lower pole the left kidneymeasuring 4-5 mm which may represent nonobstructing calculi. Doppler evaluation demonstrates normal bilateral acceleration times andresistive indices. Renal artery velocities are within normal limitsbilaterally. The urinary bladder was well distended at the time of the study andbilateral ureteral jets were visualized. Pre-void volume measured 137 cc.Minimal postvoid residual measured 8 cc. The abdominal aorta was normal in caliber with no evidence of aneurysm.Scattered atherosclerosis throughout the aorta. The visualized commoniliac arteries were normal in caliber. CONCLUSION: Renal ultrasound demonstrates normal kidneys bilaterally . Right renalcyst. Echogenic foci in the left kidney measuring up to 5 mm which may representrenal calculi. No hydronephrosis. Doppler evaluation demonstrates no evidence of significant renal arterystenosis. us Brett Ellington MD IMG US ORDERABLES Final Resu lt documented in this encounter Visit Diagnoses Diagnosis Hypertensive urgency documented in this encounter Care Teams Video Games Mechanic Relationship Specialty Start Date End Date Pcp, No PCP - General General Medicine 02/28/25 Brett Ellington MD [facility] [address] [place] [address] Primary Miniature Set Builder Cardiovascular Disease 03/09/24 documented as of this encounter
--- NOTE | 2025-10-02 08:55 | A.OFFPC_ITS ---
Vital Signs 10/02/25 08:58 Weight 140 lb 6 oz BP 176/83 H Blood Pressure Location Rt brachial Position Sitting Pulse 90 Pulse Source Pulse Oximeter Temp 97.8 F Temp Source Oral Pulse Oximetry (%) 98 Oxygen Delivery Method Room Air Intake Visit Reasons: 2 wk lab review Manager Battery Required: No Accompanied by: Daughter Allergies No Known Allergies Allergy (Verified 10/02/25 08:56) Medication List - Last Reconciled 10/02/25 by Adrián Espinal MD carvedilol 12.5 mg PO BID chlorthalidone 25 mg PO DAILY losartan 100 mg PO DAILY nifedipine ER 60 mg PO DAILY rosuvastatin 40 mg PO DAILY Tobacco use date assessed: 10/02/25 Fall risk assessment: 1 Fall in past year Last assessed Fall Risk: 10/02/25 Dental Screening Dental Screen Date: 10/02/25 Did you have a dental visit in the last 12 months?: Yes Did you have a dental problem in the last 6 months where you did not have access to dental care?: No Was dental information given to patient?: Patient has dentist HPI HPI Comments History of Present Illness Details Consent Patient was informed and verbally consented to the use of an ambient scribe for clinic note documentation during this visit. History of Present Illness The patient is a 75-year-old female presenting for a review of lab results. White Coat Hypertension: The patient has a history of white coat hypertension, with blood pressure readings that are elevated in the office but normal at home. Today's office reading was 176/83 mmHg, while home readings are typically around 135-140/80 mmHg. The patient acknowledges feeling nervous when visiting the doctor's office. Hyperlipidemia: The patient is on a high-intensity statin, 40 mg, for management of hyperlipidemia. A recent non-fasting lipid panel showed an LDL of 103 mg/dL, which is slightly above the goal of 100 mg/dL, but not concerning given the non- fasting state. She reports that she walks every day. Medications: - Statin 40 mg for hyperlipidemia - nifedipine ER 60mg - Chlorthalidone 25mg - Carvedilol 12.5mg - losartan 100mg Social History: - Exercise: The patient walks every day. - Living Situation: The patient has been considering her state of residence between [place] and [place]. Family History: - Reports her had diabetes. Diagnostic Results: - CBC: White blood cells, red blood cell s, hemoglobin, hematocrit, and platelets are normal. - Comprehensive Metabolic Panel: Sodium, potassium, chloride, renal function in CKD stage 3a range. - Hemoglobin A1c: Normal, patient is not prediabetic or diabetic. - Lipid Panel (non-fasting): Total lora sterol and triglycerides are good; LDL is 103 mg/dL and HDL is 56 mg/dL. - Other labs: Calcium, magnesium, vitami n B12, vitamin D, folate, and thyroid function are normal. - Urinalysis: Normal. - Infectious Disease Screen: Negative fo r Hepatitis B, Hepatitis C, and HIV. Review of Systems - Psychiatric: Reports feeling nervous i n the doctor's office. 10-point ROS reviewed and negative excep t as noted in HPI Past Medical History - White coat hypertension - Hyperlipidemia Health Maintenance - The patient is compliant with a high-i ntensity statin for hyperlipidemia. - The patient is compliant with antihype rtensive medication. - Lifestyle: Reports walking every day. - A referral will be provided for a card iology consultation for co-management of her cardiovascular health. - The patient is scheduled for a follow- up in three months. Physical Exam General: Well-appearing, in no acute distress. Vital signs: Blood pressure is 176/83. HEENT: Normocephalic, atraumatic. PERRLA, EOMI. Conjunctiva clear, sclera anicteric. Oropharynx clear, mucous membranes moist. TMs intact bilaterally. Neck: Supple, no lymphadenopathy, no thyromegaly, no JVD or carotid bruits. Cardiovascular: RRR, normal S1/S2, no murmurs, rubs, or gallops. Peripheral pulses 2+ and symmetric. No edema. Respiratory: Lungs clear to auscultation bilaterally, no wheezes, rales, or rhonchi. Normal effort. Abdomen: Soft, non-tender, non-distended. Normoactive bowel sounds. No hepat osplenomegaly, no masses. MSK: Full range of motion, no joint swelling or deformity. Normal gait. Skin: Warm, dry, intact. No rashes, lesions, or pallor. Neuro: Alert and oriented x3. Cranial nerves II-XII intact. Strength 5/5 throughout. Sensation intact. Reflexes 2+ symmetric. Normal coordination and gait. Psych: Appropriate mood and affect. Normal judgment and insight. Plan 1. White Coat Hypertension - Continue home blood pressure monitorin g, as readings are well-controlled at home. - No changes will be made to the patient 's antihypertensive medication at this time. - A referral will be provided to cardiol ogist Dr. Brett Ellington in [place], [place], for co-management. - Current antihypertensive medications w ill be refilled. - Follow up in three months for reassess ment. 2. Hyperlipidemia - Continue current high-intensity statin (40 mg). - The recent non-fasting LDL of 103 mg/d L is considered acceptable and does not warrant a change in management. - The patient is encouraged to continue her daily walking routine. - Lab results will be sent to her [facility] rdiologist to ensure care coordination and avoid repeat testing. 3. chronic kidney disease stage 3a continue to monitor continue tight BP control avoid nephrotoxic medications Discussion Notes I reviewed the patient's recent lab results with her and her furniture inspector, which were all reassuringly normal. I explained that her A1c confirms she is not diabetic and that her non-fasting LDL of 103 mg/dL is not a concern, given her current statin therapy. We discussed her blood pressure, acknowledging the elevated in-office reading is consistent with white coat hypertension as her home readings are normal; therefore, I will not increase her medication. I agreed to her request for a referral to a aboriginal ceremonial celebrant in [place], Dr. Brett Ellington, for co-management and will have my staff send her records. We established a plan for care coordination, where my office and the aboriginal ceremonial celebrant will exchange clinical information to avoid duplicate testing. I have refilled her medications and advised her to follow up with me in three months. Patient Instructions - Your lab results are normal and do not show any signs of diabetes. - Continue to check your blood pressure at home. - Continue taking your current blood pre ssure and cholesterol medications as prescribed; refills have been sent to your pharmacy. - Keep up with your daily walks. - Our office will give you a referral to see the clinical safety specialist (aboriginal ceremonial celebrant) Dr. Brett Ellington in [place]. - Please have the aboriginal ceremonial celebrant's office send us their notes and a summary of your visit with them. - Please schedule a follow-up appointmen t to see me again in three months. Medical Decision Making The patient is a 75-year-old female who presented for a review of lab results. Her clinical picture is notable for white coat hypertension, with a significant discrepancy between in-office BP (176/83 mmHg) and home readings (135-140/80 mmHg). Given her controlled home blood pressures, an escalation of antihypertensive therapy is not clinically indicated at this time. Her recent non-fasting lipid panel showed an LDL of 103 mg/dL, which is acceptable in the context of her high-intensity statin therapy and the non-fasting status of the sample. The remainder of the lab work, including CBC, CMP, and HbA1c, was unremarkable, ruling out anemia, electrolyte abnormalities, and diabetes. Mild to moderate?loss of kidney function noted The patient's request for a referral to a aboriginal ceremonial celebrant in [place] for co-management is reasonable, and a referral to Dr. Brett Ellington will be issued. To ensure continuity of care, her current medications will be refilled, and a plan for inter-provider communication has been established. The plan is to continue current management, facilitate the cardiology consultation, and re-evaluate her status in three months. Total time spent caring for the patient today was 20 minutes. This includes time spent before the visit reviewing the chart, time spent documenting, and time spent reviewing laboratory results, diagnostic imaging, medications, performing a medically necessary evaluation, counseling on diagnoses, care coordination. [facility] Medical History (Updated 10/02/25 @ 18:44 by Adrián Espinal MD) Elevated blood pressure reading in office with white coat syndrome, with diagnosis of hypertension Elevated LDL cholesterol level Chronic kidney disease, stage 3a Hyperlipidemia Hypertension Family History Father No problems noted. Mother No problems noted. Social History Housing: House Patient Tobacco Use Status: Never used Tobacco service: No Current occupational status: retired Cognitive needs: No Hearing needs: No Vision needs: Yes (rx glasses) Questionnaire Thrive Questionnaire Date Thrive assessed: 10/02/25 I am a: Patient What is your living situation today?: I choose not to answer this question Within the past 12 months, did the food you bought not last and you didn't have the money to get more?: I choose not to answer this question Within the past 12 months, did you worry whether your food would run out before you got money to buy more?: I choose not to answer this question Do you have trouble paying for medicines?: I choose not to answer this question Do you have trouble getting transportation to medical appointments?: No Do you have trouble paying your heating and electricity bill?: No Do you have trouble taking care of your child, family member or friend?: No Do you have trouble with day-to-day activities such as bathing, preparing meals, shopping, managing finances, etc.?: No Are you currently unemployed and looking for a job?: No Are you interested in more education?: No Please select the resources that you would like help with: None Currently or been in a relationship where the following occur: I choose not to answer THRIVE Score: 0 AUDIT C Alcohol Use Questionnaire (AUDIT-C) 1. How often do you have a drink containing alcohol?: Never 2. How many drinks containing alcohol do you have on a typical day when you are drinking?: 1 or 2 3. How often do you have six or more drinks on one occasion?: Never Total Score: 0 GUNJAN-7 AMB Questionnaire GUNJAN-7 Date GUNJAN - 7 assessed: 10/02/25 Feeling nervous, anxious, or on edge: 2 = More than half the days Not being able to stop or control worryin = Not at all Worrying too much about different things: 0 = Not at all Trouble relaxin = Not at all Being so restless that it is hard to sit still: 0 = Not at all Becoming easily annoyed or irritable: 0 = Not at all Feeling afraid as if something awful might happen: 0 = Not at all Total GUNJAN-7 score (0-4 normal; 5-9 mild; 10-14 moderate; 15-21 severe): 2 Source: Developed by Drs. Shai Carcamo, Sarah Zhu, Farnk Connolly and colleagues, with an educational gilma from [employer]. Physical exam (Primary Care) Vital Signs: Last Vital Signs Temp 97.8 F 10/02/25 08:58 Pulse 90 10/02/25 08:58 BP 176/83 H 10/02/25 08:58 Pulse Ox 98 10/02/25 08:58 Oxygen Delivery Method Room Air 10/02/25 08:58 Tobacco/Smoking Status: Tobacco use Status Tobacco use date assessed 10/02/25 10/02/25 08:57 Patient Tobacco Use Status Never used Tobacco 10/02/25 08:57 Thrive Assessment: Date of Thrive Assessment Date Thrive assessed 10/02/25 10/02/25 08:57 Currently or been in a relationship where the following occur: I choose not to answer Office Procedures Flu Questionnaire Does the patient have a severe egg allergy?: No Does the patient have severe life threatening allergies?: No Does the patient have a fever or illness today?: No Has the patient ever had Guillain-Ashaway Syndrome?: No Has the patient ever had any past reaction to a flu shot?: No Immunizations Fluarix [id number] (PF) 45 mcg (15 mcg x 3)/0.5 mL IM syringe Performing Provider: Adrián Espinal MD [place] [facility] [place] [facility] Documented (not given) by: Taniya Flores CMA on 10/02/25 09:05 Reason Not Given: Patient Refused Coding Level of Care Code Est Pt Level 3 (70489) Diagnoses Hypertension I10 Hyperlipidemia E78.5 Chronic kidney disease, stage 3a N18.31 Elevated LDL cholesterol level E78.00 Elevated blood pressure reading in office with white coat syndrome, with diagnosis of hypertension I10 Assessment & Plan Assessment & Plan (1) Hypertension: Code(s): I10 - Essential (primary) hypertension Category: Medical (2) Hyperlipidemia: Code(s): E78.5 - Hyperlipidemia, unspecified Category: Medical (3) Chronic kidney disease, stage 3a: Code(s): N18.31 - Chronic kidney disease, stage 3a Category: Medical (4) Elevated LDL cholesterol level: Code(s): E78.00 - Pure hypercholesterolemia, unspecified Category: Medical (5) Elevated blood pressure reading in office with white coat syndrome, with diagnosis of hypertension: Code(s): I10 - Essential (primary) hypertension Category: Medical Plan Orders: Orders Influenza [id number] Immunization Today Z23 - Encounter for immunization Referrals Cardiology Referral I10 - Essential (primary) hypertension
[2025-10-02 08:58] VITALS: BP 176/83; PULSE 90; TEMP 36.6; O2SAT 98
--- OUTSIDE RECORDS SUMMARY | 2025-10-02 09:22 | XMS_ITS | Encounter Summary ---
Author Organization [facility] Address [address] [place] [address] Care Team Providers Care Stevedoring Superintendent Name Role Phone Pcp, No Primary Care Provider Brett Proctor MD Unavailable [phone] Encounter Details Date Type Department Care Team (Late st Contact Info) Description 05/08/2025 Scanned Document [facility] [place] [address] [place] [address] Provider, Generic Social History Tobacco Use Types Packs/Day Years Used Date Smoking Tobacco: Never Smokeless Tobacco: Never Alcohol Use Standard Drinks/Week Comments Not Currently 0 (1 standard drink = 0.6 oz pur e alcohol) [facility] Utilities Answer Date Recorded In the past 12 months has [employer] electric, gas, oil, or water company threatened [...] were you homeless or living in a care home (including now)? No 02/23/2025 Comments No Sex and Gender Information Value Date Recorded Sex Assigned at Female 02/22/2025 11:05 PM EDT Legal Sex Female 9:23 PM EDT Gender Identity Female 02/22/2025 11:05 PM EDT Sexual Orientation Heterosexual (straight) 02/22 11:05 PM EDT documented as of this encounter Plan of Treatment Not on file documented as of this encounter Visit Diagnoses Not on filedocumented in this encounter Care Teams Stevedoring Superintendent Relationship Specialty Start Date End Date Pcp, No PCP - General General Medicine 02/28/25 Brett Ellington MD [address] [place] [address] [address] Primary Bending Machine Operator Cardiovascular Disease 03/09/24 documented as of this encounter
--- OUTSIDE RECORDS SUMMARY | 2025-10-02 09:23 | XMS_ITS | Clinical Summary ---
Author Organization [facility] Address [address] [place] [address] Care Team Providers Care Principal Accounts Clerk Name Role Phone Pcp, No Primary Care Provider Brett Proctor MD Unavailable [phone] Allergies No known active allergies Medications aspirin [...] Noted Date Diagnosed Date Hypertensive urgency 02/23/2025 Social History Tobacco Use Types Packs/Day Years Used Date Smoking Tobacco: Never Smokeless Tobacco: Never Tobacco Cessation:Counseling Given: No Alcohol Use Standard Drinks/Week Comments Not Currently 0 (1 standard drink = 0.6 oz pur e alcohol) [facility] Utilities Answer Date Recorded In the past 12 months has th e electric, gas, oil, or water company threatened [...] any time in the past 12 m [facility], were you homeless or living in a long-term (including now)? No 02/23/2025 Comments No Sex [...] 06/20/2025 8:23 AM EDT Plan of Treatment Health Maintenance Due Date Last Done Comments [...] on patient's age to complete this topic Insurance [employer] Advance Directives * Full Code (Latest Code Status on File) Date Activated Date Inactivated Comments 02/23/2025 2:48 AM 03/06/2025 3:43 PM Care Teams Principal Accounts Clerk Relationship Specialty Start Date End Date Pcp, No PCP - General General Medicine 02/28/25 Brett Ellington MD [facility] [address] [place], [place] [address] Primary Shutdown Planner Cardiovascular Disease 03/09/24
== END 2025-10-02 09:18 | disposition home or self-care (01) ==
LOC: HO.HMCFMS 08:53
PROVIDERS: PCP Student in an Organized Health Care Education/Training Program; Visit Provider Student in an Organized Health Care Education/Training Program
DX: I10 Essential (primary) hypertension (principal); E78.5 Hyperlipidemia, unspecified; N18.31 Chronic kidney disease, stage 3a; E78.00 Pure hypercholesterolemia, unspecified; Z23 Encounter for immunization

== ENCOUNTER → 2025-10-02 08:52 | Outpatient (BNVA) | payer MEDICARE, SELFPAY | PROVIDERS: Visit Provider Student in an Organized Health Care Education/Training Program | DX: I12.9 Hypertensive chronic kidney disease with stage 1 through stage 4 chronic kidney disease, or unspecified chronic kidney disease (principal); E78.5 Hyperlipidemia, unspecified; N18.31 Chronic kidney disease, stage 3a; E78.00 Pure hypercholesterolemia, unspecified; Z13.31 Encounter for screening for depression; Z13.39 Encounter for screening examination for other mental health and behavioral disorders; Z28.21 Immunization not carried out because of patient refusal; Z79.899 Other long term (current) drug therapy | CPT/HCPCS: 90471; 96127; 99212 ==